=== PATIENT | male | born 1965 | race Hispanic/Latino ===

== ENCOUNTER 2018-07-25 17:46 | Emergency (ER) | payer OTHER ==
[2018-07-25 18:03] VITALS: RESP 18; TEMP 98.7; BMI 44.6
[2018-07-25 19:12] VITALS: BP 139/86; O2SAT 98
--- NOTE | 2018-07-25 19:12 | ED PDOC ---
Arrival/HPI - General Chief Complaint: High Blood Pressure Time Seen by Provider: 07/25/18 17:48 Historian: Patient - History of Present Illness Narrative History of Present Illness (Text): 07/25/18 23:52 53yo male with pmhx of hypertension who present with complaint of elevated BP. Patient states he was just started on Hydrochlorothiazide yesterday by his PMD for hypertension . States he has been checking his BP and it runs between 170's to 110's. Says he have appointment with his PMD tomorrow, but decided to come to the ED today. Denies chest pain, SOB, slurred speech, headache, dizziness, nausea, vomiting, focal weakness, abdominal pain, back pain, any other complaint. Past Medical History - Provider Review Nursing Documentation Reviewed: Yes - Tetanus Immunization Tetanus Immunization: Up to Date - Past Medical History Past Medical History: No Previous - Cardiac Hx Cardiac Disorders: No Hx Hypertension: Yes - Pulmonary Hx Respiratory Disorders: No - Neurological Hx Neurological Disorder: No - HEENT Hx HEENT Disorder: No - Renal Hx Renal Disorder: No - Endocrine/Metabolic Hx Endocrine Disorders: No - Hematological/Oncological Hx Blood Disorders: Yes - Integumentary Hx Dermatological Disorder: No - Musculoskeletal/Rheumatological Hx Musculoskeletal Disorders: Yes Hx Falls: No - Gastrointestinal Hx Gastrointestinal Disorders: Yes Other/Comment: diverticulosis - Genitourinary/Gynecological Hx Genitourinary Disorders: No - Psychiatric Hx Psychophysiologic Disorder: No Hx Substance Use: No - Surgical History Other/Comment: colonoscopy - Anesthesia Hx Anesthesia: Yes Hx Anesthesia Reactions: No Hx Malignant Hyperthermia: No - Suicidal Assessment Feels Threatened In Home Enviroment: No Family/Social History - Physician Review Nursing Documentation Reviewed: Yes Family/Social History: Unknown Family HX Smoking Status: Never Smoked Hx Alcohol Use: No Hx Substance Use: No Hx Substance Use Treatment: No Allergies/Home Meds Allergies/Adverse Reactions: Allergies No Known Allergies Allergy (Verified 03/10/16 16:28) Home Medications: Home Meds Medication Instructions Recorded Confirmed Omeprazole 40 mg PO DAILY 03/10/16 07/25/18 hydroCHLOROthiazide [Hydrodiuril] 25 mg PO DAILY 07/25/18 07/25/18 Review of Systems - Physician Review All systems were reviewed & negative as marked: Yes - Review of Systems Constitutional: Normal, Other (Elevated BP) Eyes: Normal ENT: Normal Respiratory: Normal Cardiovascular: Normal Gastrointestinal: Normal Genitourinary Male: Normal Musculoskeletal: Normal Skin: Normal Neurological: Normal Endocrine: Normal Hemo/Lymphatic: Normal Psychiatric: Normal Physical Exam Vital Signs Reviewed: Yes Vital Signs Temp Pulse Resp BP Pulse Ox 07/25/18 18:02 98.7 F 96 H 18 151/97 H 99 Temperature: Afebrile Blood Pressure: Normal Pulse: Regular Respiratory Rate: Normal Appearance: Positive for: Well-Appearing, Non-Toxic, Comfortable Pain Distress: None Mental Status: Positive for: Alert and Oriented X 3 - Systems Exam Head: Present: Atraumatic, Normocephalic Pupils: Present: PERRL Extroacular Muscles: Present: EOMI Conjunctiva: Present: Normal Mouth: Present: Moist Mucous Membranes Neck: Present: Normal Range of Motion Respiratory/Chest: Present: Clear to Auscultation, Good Air Exchange. No: Respiratory Distress, Accessory Muscle Use Cardiovascular: Present: Regular Rate and Rhythm, Normal S1, S2. No: Murmurs Abdomen: No: Tenderness, Distention, Peritoneal Signs Back: Present: Normal Inspection Upper Extremity: Present: Normal Inspection. No: Cyanosis, Edema Lower Extremity: Present: Normal Inspection. No: Edema Neurological: Present: GCS=15, CN II-XII Intact, Speech Normal Skin: Present: Warm, Dry, Normal Color. No: Rashes Psychiatric: Present: Alert, Oriented x 3, Normal Insight, Normal Concentration Medical Decision Making ED Course and Treatment: 07/26/18 00:06 PT presented to ED for elevated BP. He was not in any distress. Neurologically intact. Denied any somatic complaint. He was only placed on HTZ yesterday and have appointment with his PMD tomorrow. He was observed in ED for an hour and his BP improved in ED without medication. PT does not need any antihypertensive medication at this time from the ED. He was advised to f/u with his PMD tomorrow. TRT ED for any new or worsening symptoms. Disposition/Present on Arrival - Present on Arrival Any Indicators Present on Arrival: No History of DVT/PE: No History of Uncontrolled Diabetes: No Urinary Catheter: No History of Decub. Ulcer: No History Surgical Site Infection Following: None - Disposition Have Diagnosis and Disposition been Completed?: Yes Diagnosis: Hypertension Disposition: HOME/ ROUTINE Disposition Time: 19:15 Patient Plan: Discharge Condition: STABLE Discharge Instructions (ExitCare): High Blood Pressure in Adults Additional Instructions: Follow up with your doctor tomorrow Return to ED for any new or worsening symptoms Referrals: Theodora Vivas MD [Family Provider] - Follow up with primary Forms: [employer] (Malay)
[2018-07-25 19:17] VITALS: PULSE 92
== END 2018-07-25 19:17 | disposition home or self-care (01) ==
LOC: ED 17:46
DX: I10 Essential (primary) hypertension (principal)